=== PATIENT | female | born 1980 | race Caucasian/White ===

== ENCOUNTER 2018-03-14 19:08 | Emergency (ER) | payer MEDICAID ==
[~2018-03-14] VITALS: Ht 154.9 cm; Wt 75.7 kg
[2018-03-14 19:15] VITALS: Ht 154.9 cm; Wt 75.7 kg
[2018-03-14 20:51] VITALS: BP 124/80
== END 2018-03-14 21:39 | disposition home or self-care (01) ==
LOC: ED 19:08
DX: O26.891 Other specified pregnancy related conditions, first trimester (principal); S91.311A Laceration without foreign body, right foot, initial encounter; Z3A.01 Less than 8 weeks gestation of pregnancy; W20.8XXA Other cause of strike by thrown, projected or falling object, initial encounter; Y93.89 Activity, other specified; Y92.89 Other specified places as the place of occurrence of the external cause; Y99.8 Other external cause status
CPT/HCPCS: J2001